=== PATIENT | male | born 1960 | race African-American/Black ===

== ENCOUNTER 2021-03-18 09:20 | Emergency (ER) | payer OTHER ==
[~2021-03-18] VITALS: Ht 165.1 cm; Wt 70.3 kg
[2021-03-18 09:53] LABS: Urine Bacteria FEW /hpf (None Seen); Urine Blood 3+ /uL (Negative); Urine Specific Gravity 1.012 (1.001-1.035); Urine WBC 99 /hpf (0 - 3)
[2021-03-18 09:56] LABS: Basophils # (auto) 0.1 10 ^3/uL (0-0.2); Eosinophils # (auto) 0.3 10 ^3/uL (0-0.8); White Blood Cell 12.6 10^3/uL (4.4-10.8)
[2021-03-18 09:58] LABS: Basophils % (auto) 0.4 % (0.0-2.0); Eosinophils % (auto) 2.5 % (0.0-7.0); Hematocrit 30.7 % (41.0-53.0); Hemoglobin 10.2 g/dL (13.5-17.5); Lymphocytes # (auto) 2.7 10 ^3/uL (0.4-5.4); Lymphocytes % (auto) 21.1 % (10.0-50.0); Mean Corpuscular Hemoglobin 23.5 pg (28.0-32.0); Mean Corpuscular Hgb Conc. 33.2 g/dL (32.0-36.0); Mean Corpuscular Volume 70.9 fL (80.0-100.0); Monocytes # (auto) 0.8 10 ^3/uL (0-1.3); Monocytes % (auto) 6.4 % (0.0-12.0); Neutrophils # (auto) 8.8 10 ^3/uL (1.6-8.6); Neutrophils % (auto) 69.6 % (37.0-80.0); Nucleated Red Blood Cells % 0.2 %; Red Blood Cells 4.33 10^6/uL (4.5-5.90); Red Cell Distribution Width 18.3 % (11.8-14.3)
[2021-03-18 10:07] LABS: Albumin 3.7 g/dL (3.4-5.0); Calcium 8.4 mg/dL (8.5-10.1)
[2021-03-18 10:11] LABS: BUN/Creatinine Ratio 13.9; Bilirubin, Total 0.4 mg/dL (0.2-1.0); Total Protein 8.2 g/dL (6.4-8.2)
[2021-03-18 11:21] VITALS: BP 142/82
== END 2021-03-18 11:24 | disposition home or self-care (01) ==
LOC: ER 09:20
DX: N20.0 Calculus of kidney (principal); N39.0 Urinary tract infection, site not specified; I12.9 Hypertensive chronic kidney disease with stage 1 through stage 4 chronic kidney disease, or unspecified chronic kidney disease; N18.9 Chronic kidney disease, unspecified; Z88.8 Allergy status to other drugs, medicaments and biological substances
CPT/HCPCS: 36415; 71045; 74176; 80053; 81001; 85025

== ENCOUNTER 2021-04-20 18:48 | Inpatient (IN) | payer MEDICAID ==
[~2021-04-20] VITALS: Ht 165.1 cm; Wt 74.0 kg
[2021-04-20 21:20] LABS: Basophils # (auto) 0.1 10 ^3/uL (0-0.2); Basophils % (auto) 0.7 % (0.0-2.0); Eosinophils # (auto) 0.3 10 ^3/uL (0-0.8); Hemoglobin 10.5 g/dL (13.5-17.5); Neutrophils # (auto) 8.4 10 ^3/uL (1.6-8.6); Neutrophils % (auto) 64.9 % (37.0-80.0)
[2021-04-20 21:21] LABS: Eosinophils % (auto) 2.2 % (0.0-7.0); Hematocrit 31.2 % (41.0-53.0); Lymphocytes % (auto) 23.1 % (10.0-50.0); Mean Corpuscular Hemoglobin 23.8 pg (28.0-32.0); Mean Corpuscular Hgb Conc. 33.5 g/dL (32.0-36.0); Mean Corpuscular Volume 70.9 fL (80.0-100.0); Monocytes # (auto) 1.2 10 ^3/uL (0-1.3); Monocytes % (auto) 9.1 % (0.0-12.0); Nucleated Red Blood Cells % 0.2 %; Red Cell Distribution Width 18.8 % (11.8-14.3)
[2021-04-20 21:24] LABS: Urine Bacteria FEW /hpf (None Seen); Urine Blood 3+ /uL (Negative); Urine Mucus FEW (None Seen); Urine Specific Gravity 1.014 (1.001-1.035); Urine WBC 247 /hpf (0 - 3); Urine WBC Clumps PRESENT /hpf (None Seen)
[2021-04-20 21:32] LABS: INR 1.07 (0.9-1.15)
[2021-04-20 21:34] LABS: Albumin 3.7 g/dL (3.4-5.0); Calcium 8.6 mg/dL (8.5-10.1); Potassium 3.6 mmol/L (3.5-5.1)
[2021-04-20 21:37] LABS: BUN/Creatinine Ratio 19.2; Bilirubin, Total 0.3 mg/dL (0.2-1.0); Total Protein 8.7 g/dL (6.4-8.2)
[2021-04-20] MEDS ORDERED: cefTRIAXone 1GM/50ML D5W 50 ML IV ONE (22:45)
[2021-04-20] MEDS ORDERED: SODIUM CHLORIDE 0.9% 1,000 ML IV ONE (22:45)
[2021-04-21] MEDS ORDERED: MORPHINE SULFATE INJECTION 2 MG/ML SYRG IV PRN (00:30)
[2021-04-21] MEDS ORDERED: ACETAMINOPHEN 325 MG TAB PO PRN (00:30)
[2021-04-21] MEDS ORDERED: NITROGLYCERIN 0.4 MG SL TAB SL PRN (00:30)
[2021-04-21] MEDS ORDERED: ONDANSETRON HCL 4 MG/2 ML VIAL IV PRN (00:30)
[2021-04-21] MEDS ORDERED: DOCUSATE SOD 100 MG CAP PO PRN (00:30)
[2021-04-21 05:06] LABS: Basophils # (auto) 0.1 10 ^3/uL (0-0.2); Eosinophils # (auto) 0.3 10 ^3/uL (0-0.8); Lymphocytes # (auto) 2.3 10 ^3/uL (0.4-5.4); Mean Corpuscular Hemoglobin 24.2 pg (28.0-32.0); Nucleated Red Blood Cells % 0.1 %; Red Cell Distribution Width 18.6 % (11.8-14.3); White Blood Cell 10.8 10^3/uL (4.4-10.8)
[2021-04-21 05:08] LABS: Basophils % (auto) 0.5 % (0.0-2.0); Eosinophils % (auto) 2.5 % (0.0-7.0); Hematocrit 30.9 % (41.0-53.0); Hemoglobin 10.5 g/dL (13.5-17.5); Lymphocytes % (auto) 21.4 % (10.0-50.0); Mean Corpuscular Volume 71.1 fL (80.0-100.0); Monocytes # (auto) 0.9 10 ^3/uL (0-1.3); Monocytes % (auto) 8.2 % (0.0-12.0); Neutrophils # (auto) 7.3 10 ^3/uL (1.6-8.6); Neutrophils % (auto) 67.4 % (37.0-80.0); Red Blood Cells 4.34 10^6/uL (4.5-5.90)
[2021-04-21 05:23] LABS: Calcium 8.6 mg/dL (8.5-10.1); Potassium 3.7 mmol/L (3.5-5.1)
[2021-04-21 05:29] LABS: Albumin 3.4 g/dL (3.4-5.0); Bilirubin, Total 0.5 mg/dL (0.2-1.0)
[2021-04-21] MEDS: SODIUM CHLOR 0.9% PF (SALINE LOCK) 10ML VIAL/SYR IV SCH ×3 (06:07→21:58)
[2021-04-21] MEDS: cefTRIAXone 1GM/50ML D5W 50 ML IV SCH (09:41)
[2021-04-21] MEDS: HYDROcodone-ACET 5/325MG TAB PO PRN ×3 (09:42→17:45)
[2021-04-21] MEDS: ZINC SULFATE 220mg CAP or TAB PO SCH (10:20)
[2021-04-21] MEDS: FAMOTIDINE (10MG/ML) 2ML VL IV SCH ×2 (10:20→21:58)
[2021-04-21] MEDS: MULTIPLE VITAMIN TAB PO SCH (10:21)
[2021-04-21] MEDS: ASCORBIC ACID 500 MG TAB PO SCH ×2 (10:21→21:58)
[2021-04-21] MEDS ORDERED: SODIUM CHLORIDE 0.9% 1,000 ML IV ONE (14:00)
[2021-04-21 16:08] VITALS: BP 145/84
[2021-04-21] MEDS ORDERED: TAM04C PO (16:31)
[2021-04-21] MEDS ORDERED: AML5T PO (16:31)
[2021-04-21 17:00] VITALS: BP 154/80
[2021-04-21 22:02] VITALS: BP 140/78
[2021-04-22] MEDS: HYDROcodone-ACET 5/325MG TAB PO PRN ×3 (02:19→20:34)
[2021-04-22 05:00] VITALS: BP_SYST 136; BP_SYST 164; BP_DIAS 71; BP_DIAS 80
[2021-04-22] MEDS: SODIUM CHLOR 0.9% PF (SALINE LOCK) 10ML VIAL/SYR IV SCH ×3 (05:13→22:00)
[2021-04-22 06:21] LABS: Basophils # (auto) 0.1 10 ^3/uL (0-0.2); Basophils % (auto) 0.6 % (0.0-2.0); Eosinophils # (auto) 0.2 10 ^3/uL (0-0.8); Hemoglobin 10.8 g/dL (13.5-17.5); Nucleated Red Blood Cells % 0.1 %
[2021-04-22 06:23] LABS: Eosinophils % (auto) 1.9 % (0.0-7.0); Hematocrit 32.3 % (41.0-53.0); Lymphocytes # (auto) 2.1 10 ^3/uL (0.4-5.4); Lymphocytes % (auto) 19.6 % (10.0-50.0); Mean Corpuscular Hemoglobin 24.1 pg (28.0-32.0); Mean Corpuscular Hgb Conc. 33.6 g/dL (32.0-36.0); Mean Corpuscular Volume 71.7 fL (80.0-100.0); Monocytes # (auto) 0.9 10 ^3/uL (0-1.3); Monocytes % (auto) 8.5 % (0.0-12.0); Neutrophils # (auto) 7.6 10 ^3/uL (1.6-8.6); Neutrophils % (auto) 69.4 % (37.0-80.0); Red Cell Distribution Width 18.6 % (11.8-14.3); White Blood Cell 10.9 10^3/uL (4.4-10.8)
[2021-04-22 06:33] LABS: Albumin 3.6 g/dL (3.4-5.0); Calcium 8.8 mg/dL (8.5-10.1); Potassium 3.9 mmol/L (3.5-5.1)
[2021-04-22 06:38] LABS: BUN/Creatinine Ratio 14.7; Bilirubin, Total 0.5 mg/dL (0.2-1.0); Total Protein 8.4 g/dL (6.4-8.2)
[2021-04-22 09:00] VITALS: BP 165/93
[2021-04-22 12:42] VITALS: BP 162/95
[2021-04-22] MEDS ORDERED: OXYB10TA14 PO (12:47)
[2021-04-22] MEDS: MULTIPLE VITAMIN TAB PO SCH (12:49)
[2021-04-22] MEDS: FAMOTIDINE (10MG/ML) 2ML VL IV SCH ×2 (12:49→22:00)
[2021-04-22] MEDS: ASCORBIC ACID 500 MG TAB PO SCH ×2 (12:49→22:00)
[2021-04-22] MEDS: ZINC SULFATE 220mg CAP or TAB PO SCH (12:49)
[2021-04-22] MEDS: cefTRIAXone 1GM/50ML D5W 50 ML IV SCH (15:00)
[2021-04-22 17:00] VITALS: BP 172/111
[2021-04-22] MEDS ORDERED: hydrALAZINE HCL 20 MG/ML VL IV PRN (19:15)
[2021-04-22 22:00] VITALS: BP 160/104
[2021-04-23] MEDS: HYDROcodone-ACET 5/325MG TAB PO PRN ×2 (04:06→12:40)
[2021-04-23 05:00] VITALS: BP 129/79
[2021-04-23] MEDS: SODIUM CHLOR 0.9% PF (SALINE LOCK) 10ML VIAL/SYR IV SCH ×2 (06:00→14:00)
[2021-04-23] MEDS ORDERED: FUROSEMIDE 40 MG/4 ML VIAL IV ONE (08:15)
[2021-04-23 09:00] VITALS: BP 149/87
[2021-04-23] MEDS: FAMOTIDINE (10MG/ML) 2ML VL IV SCH (10:00)
[2021-04-23] MEDS: MULTIPLE VITAMIN TAB PO SCH (12:40)
[2021-04-23] MEDS: ASCORBIC ACID 500 MG TAB PO SCH (12:40)
[2021-04-23] MEDS: ZINC SULFATE 220mg CAP or TAB PO SCH (12:40)
[2021-04-23 13:00] VITALS: BP 142/84
[2021-04-23 17:00] VITALS: BP 155/96
[2021-04-23 20:00] VITALS: BP 149/87
[2021-04-23 22:00] VITALS: BP 126/83
[2021-04-24] VITALS (7 sets, daily range): BP systolic 126–148; BP diastolic 80–95
[2021-04-24] MEDS: ASCORBIC ACID 500 MG TAB PO SCH ×3 (01:10→22:05)
[2021-04-24] MEDS: FAMOTIDINE (10MG/ML) 2ML VL IV SCH ×3 (01:10→22:00)
[2021-04-24] MEDS: SODIUM CHLOR 0.9% PF (SALINE LOCK) 10ML VIAL/SYR IV SCH ×3 (07:18→22:05)
[2021-04-24] MEDS: cefTRIAXone 1GM/50ML D5W 50 ML IV SCH ×2 (09:30→09:49)
[2021-04-24] MEDS: ZINC SULFATE 220mg CAP or TAB PO SCH (09:49)
[2021-04-24] MEDS: MULTIPLE VITAMIN TAB PO SCH (09:49)
[2021-04-24] MEDS: amLODIPine BESYLATE 5 MG TAB PO SCH (10:30)
[2021-04-24] MEDS: OXYBUTYNIN CHL 5 MG TAB PO SCH (10:36)
[2021-04-24] MEDS: MORPHINE SULFATE INJECTION 2 MG/ML SYRG IV PRN ×3 (10:37→23:31)
[2021-04-24] MEDS: TAMSULOSIN HYDROCHLORIDE 0.4 MG CAP PO SCH (17:48)
[2021-04-25 05:00] VITALS: BP 113/67
[2021-04-25] MEDS: SODIUM CHLOR 0.9% PF (SALINE LOCK) 10ML VIAL/SYR IV SCH ×3 (05:21→21:37)
[2021-04-25] MEDS: MORPHINE SULFATE INJECTION 2 MG/ML SYRG IV PRN ×3 (05:35→19:49)
[2021-04-25 08:17] VITALS: BP 123/80
[2021-04-25 09:00] VITALS: BP 123/80
[2021-04-25] MEDS: cefTRIAXone 1GM/50ML D5W 50 ML IV SCH (09:46)
[2021-04-25] MEDS: ZINC SULFATE 220mg CAP or TAB PO SCH (09:48)
[2021-04-25] MEDS: OXYBUTYNIN CHL 5 MG TAB PO SCH (09:48)
[2021-04-25] MEDS: ASCORBIC ACID 500 MG TAB PO SCH ×2 (09:48→21:36)
[2021-04-25] MEDS: FAMOTIDINE (10MG/ML) 2ML VL IV SCH ×2 (09:55→21:37)
[2021-04-25] MEDS: amLODIPine BESYLATE 5 MG TAB PO SCH (09:56)
[2021-04-25] MEDS: MULTIPLE VITAMIN TAB PO SCH (11:40)
[2021-04-25 13:00] VITALS: BP 115/85
[2021-04-25 17:00] VITALS: BP 133/86
[2021-04-25] MEDS: TAMSULOSIN HYDROCHLORIDE 0.4 MG CAP PO SCH (17:32)
[2021-04-25 22:00] VITALS: BP 128/79
[2021-04-26] MEDS: MORPHINE SULFATE INJECTION 2 MG/ML SYRG IV PRN ×3 (01:45→18:13)
[2021-04-26 05:00] VITALS: BP 133/85
[2021-04-26] MEDS: SODIUM CHLOR 0.9% PF (SALINE LOCK) 10ML VIAL/SYR IV SCH ×3 (05:44→21:02)
[2021-04-26 09:00] VITALS: BP 121/92
[2021-04-26] MEDS: amLODIPine BESYLATE 5 MG TAB PO SCH (10:00)
[2021-04-26 10:07] LABS: BUN/Creatinine Ratio 18.1; Potassium 3.8 mmol/L (3.5-5.1)
[2021-04-26] MEDS: OXYBUTYNIN CHL 5 MG TAB PO SCH (10:16)
[2021-04-26] MEDS: FAMOTIDINE (10MG/ML) 2ML VL IV SCH ×2 (10:16→21:02)
[2021-04-26] MEDS: cefTRIAXone 1GM/50ML D5W 50 ML IV SCH (10:16)
[2021-04-26] MEDS: ASCORBIC ACID 500 MG TAB PO SCH ×2 (10:16→21:02)
[2021-04-26] MEDS: MULTIPLE VITAMIN TAB PO SCH (10:16)
[2021-04-26] MEDS: ZINC SULFATE 220mg CAP or TAB PO SCH (10:17)
[2021-04-26] MEDS ORDERED: FUROSEMIDE 40 MG/4 ML VIAL IV ONE (11:30)
[2021-04-26 17:00] VITALS: BP 135/91
[2021-04-26] MEDS: TAMSULOSIN HYDROCHLORIDE 0.4 MG CAP PO SCH (18:13)
[2021-04-26 22:00] VITALS: BP 131/98
[2021-04-27] MEDS: MORPHINE SULFATE INJECTION 2 MG/ML SYRG IV PRN (01:57)
[2021-04-27 05:00] VITALS: BP 128/79
[2021-04-27] MEDS: SODIUM CHLOR 0.9% PF (SALINE LOCK) 10ML VIAL/SYR IV SCH ×2 (05:46→14:00)
[2021-04-27 09:00] VITALS: BP 121/85
[2021-04-27] MEDS: MULTIPLE VITAMIN TAB PO SCH (09:27)
[2021-04-27] MEDS: cefTRIAXone 1GM/50ML D5W 50 ML IV SCH (09:27)
[2021-04-27] MEDS: FAMOTIDINE (10MG/ML) 2ML VL IV SCH (09:28)
[2021-04-27] MEDS: OXYBUTYNIN CHL 5 MG TAB PO SCH (09:28)
[2021-04-27] MEDS: ZINC SULFATE 220mg CAP or TAB PO SCH (09:28)
[2021-04-27] MEDS: HYDROcodone-ACET 5/325MG TAB PO PRN (09:28)
[2021-04-27] MEDS: ASCORBIC ACID 500 MG TAB PO SCH (09:28)
[2021-04-27] MEDS: amLODIPine BESYLATE 5 MG TAB PO SCH (09:32)
[2021-04-27 13:00] VITALS: BP 147/101
[2021-04-27] MEDS: PHENAZOPYRIDINE HCL 100 MG TAB PO SCH ×2 (16:13→18:56)
[2021-04-27 16:15] VITALS: BP 121/85
[2021-04-27 17:00] VITALS: BP 120/79
[2021-04-27] MEDS: TAMSULOSIN HYDROCHLORIDE 0.4 MG CAP PO SCH (18:56)
== END 2021-04-27 18:58 | disposition home or self-care (01) | DRG 466 ==
LOC: ER 18:48 → OVERFLOW 04-21 00:22 → WEST WING 04-21 16:13
PROVIDERS: ADMIT Nurse Practitioner Family; ATTEND Family Medicine
DX: T83.012A Breakdown (mechanical) of nephrostomy catheter, initial encounter (principal); A41.9 Sepsis, unspecified organism; N17.9 Acute kidney failure, unspecified; I12.0 Hypertensive chronic kidney disease with stage 5 chronic kidney disease or end stage renal disease; N18.6 End stage renal disease; N13.6 Pyonephrosis; R31.9 Hematuria, unspecified; Z20.822 Contact with and (suspected) exposure to COVID-19; Y73.2 Prosthetic and other implants, materials and accessory gastroenterology and urology devices associated with adverse incidents; Z85.51 Personal history of malignant neoplasm of bladder; Z87.442 Personal history of urinary calculi; Z87.891 Personal history of nicotine dependence; Z90.79 Acquired absence of other genital organ(s)
CPT/HCPCS: 36415; 74176; 78707; 80048; 80053; 81001; 83605; 85025; 85610; 87040; 87086; 87426; 96361; 96365; 96366; G0378; J0696; J3490

== ENCOUNTER 2021-06-15 07:42 | Emergency (ER) | payer MEDICAID ==
[~2021-06-15] VITALS: Ht 165.1 cm; Wt 70.3 kg
[~2021-06-15 07:42] MED LIST: AML5T PO; OXYB10TA14 PO; TAM04C PO
[2021-06-15 07:58] VITALS: BP 143/77
== END 2021-06-15 10:03 | disposition home or self-care (01) ==
LOC: ER 07:42
DX: T83.092A Other mechanical complication of nephrostomy catheter, initial encounter (principal); R10.9 Unspecified abdominal pain; I12.0 Hypertensive chronic kidney disease with stage 5 chronic kidney disease or end stage renal disease; N18.6 End stage renal disease; Z79.899 Other long term (current) drug therapy; Z88.8 Allergy status to other drugs, medicaments and biological substances

== ENCOUNTER 2021-06-19 05:59 | Emergency (ER) | payer MEDICAID ==
[~2021-06-19] VITALS: Ht 165.1 cm; Wt 70.3 kg
[2021-06-19 08:02] LABS: Basophils # (auto) 0.1 10 ^3/uL (0-0.2); Eosinophils # (auto) 0.1 10 ^3/uL (0-0.8); Hemoglobin 9.6 g/dL (13.5-17.5)
[2021-06-19 08:04] LABS: Basophils % (auto) 0.8 % (0.0-2.0); Eosinophils % (auto) 0.9 % (0.0-7.0); Hematocrit 29.3 % (41.0-53.0); Lymphocytes # (auto) 2.4 10 ^3/uL (0.4-5.4); Lymphocytes % (auto) 16.2 % (10.0-50.0); Mean Corpuscular Hemoglobin 23.9 pg (28.0-32.0); Mean Corpuscular Hgb Conc. 32.8 g/dL (32.0-36.0); Monocytes # (auto) 1.7 10 ^3/uL (0-1.3); Monocytes % (auto) 11.5 % (0.0-12.0); Neutrophils # (auto) 10.6 10 ^3/uL (1.6-8.6); Neutrophils % (auto) 70.6 % (37.0-80.0); Nucleated Red Blood Cells % 0.1 %; Red Blood Cells 4.01 10^6/uL (4.5-5.90); Red Cell Distribution Width 17.5 % (11.8-14.3)
[2021-06-19 08:17] LABS: INR 1.1 (0.9-1.15); Partial Thromboplastin Time 30.3 sec (23.6-33.0)
[2021-06-19 08:20] LABS: Albumin 3.3 g/dL (3.4-5.0); Anion Gap 5 (5-15); Blood Urea Nitrogen 26 mg/dL (7-18); Carbon Dioxide 24 mmol/L (21-32); Chloride 108 mmol/L (98-107); Glucose 94 mg/dL (74-106); Potassium 4.3 mmol/L (3.5-5.1); Sodium 137 mmol/L (136-145)
[2021-06-19 08:25] LABS: Alanine Aminotransferase 35 U/L (16-61); Alkaline Phosphatase 110 U/L (45-117); Aspartate Aminotransferase 21 U/L (15-37); BUN/Creatinine Ratio 13.8; Bilirubin, Total 0.3 mg/dL (0.2-1.0); GFR African American 47 mL/min; GFR Non-African American 39 mL/min; Total Protein 8.4 g/dL (6.4-8.2)
[2021-06-19] MEDS ORDERED: cefTRIAXone W LIDOCAINE 1 GM IM IM ONE (08:30)
[2021-06-19 08:55] LABS: Urine Bacteria MOD /hpf (None Seen); Urine Blood 3+ /uL (Negative); Urine Hyaline Cast MOD /lpf (0 - 2); Urine Specific Gravity 1.016 (1.001-1.035); Urine WBC 607 /hpf (0 - 3)
[2021-06-19] MEDS ORDERED: cefTRIAXone SOD 1,000 MG VL ONE (09:00)
[2021-06-19 09:18] VITALS: BP 155/80
== END 2021-06-19 10:05 | disposition home or self-care (01) ==
LOC: ER 05:59
DX: N39.0 Urinary tract infection, site not specified (principal); I12.0 Hypertensive chronic kidney disease with stage 5 chronic kidney disease or end stage renal disease; E11.22 Type 2 diabetes mellitus with diabetic chronic kidney disease; N18.6 End stage renal disease; R31.9 Hematuria, unspecified; Z93.6 Other artificial openings of urinary tract status; Z88.6 Allergy status to analgesic agent; Z79.899 Other long term (current) drug therapy; Z87.442 Personal history of urinary calculi
CPT/HCPCS: 36415; 71045; 80053; 81001; 84484; 85025; 85610; 85730; 96372; 99284; J0696

== ENCOUNTER 2021-08-06 16:29 | Inpatient (IN) | payer MEDICAID ==
[~2021-08-06] VITALS: Ht 167.6 cm; Wt 62.4 kg
[2021-08-06 19:00] LABS: Hematocrit 25.1 % (41.0-53.0); Hemoglobin 7.5 g/dL (13.5-17.5); Mean Corpuscular Hemoglobin 21.2 pg (28.0-32.0); Mean Corpuscular Volume 70.7 fL (80.0-100.0); Red Blood Cells 3.55 10^6/uL (4.5-5.90); Red Cell Distribution Width 19.9 % (11.8-14.3)
[2021-08-06 19:08] LABS: Basophils % (manual) 0 (0.0-2.0); Blast Cells 0; Eosinophils % (manual) 0 (0-7); Metamyelocytes % 0; Myelocytes % 0; Promyelocytes % 0; Reactive Lymphocytes 0
[2021-08-06 19:17] LABS: Albumin 2.3 g/dL (3.4-5.0); BUN/Creatinine Ratio 22.2; Calcium 8.1 mg/dL (8.5-10.1); Potassium 5.3 mmol/L (3.5-5.1)
[2021-08-06 19:26] LABS: Bilirubin, Total 2.7 mg/dL (0.2-1.0); Total Protein 7.6 g/dL (6.4-8.2)
[2021-08-06 20:54] LABS: Urine Bacteria FEW /hpf (None Seen); Urine Blood 2+ /uL (Negative); Urine Specific Gravity 1.012 (1.001-1.035); Urine WBC 341 /hpf (0 - 3)
[2021-08-06 21:06] LABS: Band Neutrophils % (manual) 2; Lymphocytes % (manual) 20 (10.0-50.0); Monocytes % (manual) 7 (0-12)
[2021-08-06] MEDS ORDERED: MORPHINE SULFATE 4 MG/ML SYR/VIAL IV ONE (22:15)
[2021-08-06] MEDS ORDERED: ONDANSETRON HCL 4 MG/2 ML VIAL IV ONE (22:15)
[2021-08-06 23:04] LABS: INR 1.49 (0.9-1.15); Partial Thromboplastin Time 34.2 sec (23.6-33.0)
[2021-08-06 23:32] LABS: Lactic Acid w/Reflex 3.7 mmol/L (0.4-2.0)
[2021-08-06 23:55] VITALS: BP 117/72
[2021-08-07] MEDS ORDERED: HYDROCORTISONE SOD SUCC 100 MG/2ML INJ VIAL IV ONE
[2021-08-07] MEDS ORDERED: SODIUM CHLORIDE 0.9% 500 ML IV ONE
[2021-08-07] MEDS ORDERED: CEFTRIAXONE SODIUM 2 GM in D5W 5% 50 ML IV ONE ×2
[2021-08-07] MEDS ORDERED: cefTRIAXone 1GM/50ML D5W 100 ML IV ONE (00:06)
[2021-08-07 00:21] VITALS: BP 120/76
[2021-08-07 01:52] VITALS: BP 130/81
[2021-08-07] MEDS ORDERED: HYDROmorphone HCL 2 MG/ML VL IV ONE (02:15)
[2021-08-07 07:21] LABS: Mean Corpuscular Hemoglobin 22.3 pg (28.0-32.0); Mean Corpuscular Hgb Conc. 30.5 g/dL (32.0-36.0); Mean Corpuscular Volume 72.9 fL (80.0-100.0); Red Blood Cells 3.57 10^6/uL (4.5-5.90); White Blood Cell 24.5 10^3/uL (4.4-10.8)
[2021-08-07 07:27] LABS: Red Cell Distribution Width 21.7 % (11.8-14.3)
[2021-08-07 07:28] LABS: Basophils % (manual) 0 (0.0-2.0); Blast Cells 0; Eosinophils % (manual) 0 (0-7); Metamyelocytes % 0; Myelocytes % 0; Promyelocytes % 0; Reactive Lymphocytes 0
[2021-08-07 08:17] LABS: Band Neutrophils % (manual) 2; Lymphocytes % (manual) 1 (10.0-50.0); Monocytes % (manual) 4 (0-12)
[2021-08-07] MEDS: cefTRIAXone 1GM/50ML D5W 50 ML IV SCH (10:15)
[2021-08-07] MEDS ORDERED: MORPHINE SULFATE INJECTION 2 MG/ML SYRG IV PRN ×2 (10:15→12:30)
[2021-08-07] MEDS ORDERED: NITROGLYCERIN 0.4 MG SL TAB SL PRN (10:15)
[2021-08-07] MEDS ORDERED: MORPHINE SULF 15mg ER tab PO SCH (12:30)
[2021-08-07] MEDS ORDERED: OXYCODONE W/ ACETAMINOPHEN 5/325MG TABLET PO PRN (12:30)
[2021-08-07 13:00] VITALS: BP 139/78
[2021-08-07] MEDS: PROMETHAZINE HCL 25 MG/ML 1ML IV PRN (13:01)
[2021-08-07] MEDS ORDERED: HYDROcodone-ACET 10/325MG TAB PO PRN (16:45)
[2021-08-07 17:00] VITALS: BP 138/90
[2021-08-07] MEDS: HYDROmorphone HCL 2 MG/ML VL IV PRN ×2 (17:37→21:31)
[2021-08-07] MEDS: MORPHINE SULF 30 mg ER tab PO SCH (21:31)
[2021-08-07 22:00] VITALS: BP 121/77
[2021-08-07] MEDS ORDERED: SENNA 8.6 MG TAB PO SCH (22:00)
[2021-08-08] VITALS (37 sets, daily range): BP systolic 58–168; BP diastolic 23–107
[2021-08-08] MEDS: PROMETHAZINE HCL 25 MG/ML 1ML IV PRN (04:44)
[2021-08-08 05:55] LABS: BUN/Creatinine Ratio 19.3; Calcium 8.7 mg/dL (8.5-10.1)
[2021-08-08] MEDS ORDERED: DEXTROSE 50% SYRINGE 50 ML IV ONE ×2 (06:12→13:04)
[2021-08-08] MEDS ORDERED: DEXTROSE 10% 1,000 ML IV ONE ×2 (06:23→06:30)
[2021-08-08] MEDS ORDERED: DEXTROSE (50%) 50ML SYRG IV PRN (06:30)
[2021-08-08 06:44] LABS: Potassium 7.4 mmol/L (3.5-5.1)
[2021-08-08] MEDS ORDERED: ALBUTEROL SULF 2.5 MG/0.5ML(0.5%) NEB SOLN NEB ONE (07:00)
[2021-08-08] MEDS ORDERED: DEXTROSE (50%) 50ML SYRG IV ONE ×2 (07:00→18:14)
[2021-08-08] MEDS ORDERED: InsuLIN REG 1unit/0.01ml Soln (100units/ml) IV ONE (07:00)
[2021-08-08] MEDS ORDERED: CALCIUM GLUC 1,000mg/50ml-NS 50 ML IV ONE (07:00)
[2021-08-08 07:22] LABS: Lactic Acid w/Reflex 20.5 mmol/L (0.4-2.0)
[2021-08-08] MEDS ORDERED: ACCU-CHEK COMFORT CURVE STRIP VI SCH ×2 (08:00→10:00)
[2021-08-08] MEDS ORDERED: NOREPINEPHRINE 8 MG/250ML KIT 250 ML IV ONE (08:47)
[2021-08-08] MEDS ORDERED: SUCCINYLCHOLINE CHLORIDE 20 MG/ML 10ML VIAL IV ONE (08:59)
[2021-08-08] MEDS ORDERED: MIDAZOLAM DRIP 50 mg/50mL 50 ML IV ONE (09:00)
[2021-08-08] MEDS ORDERED: ETOMIDATE (2MG/ML) 20ML VIAL IV ONE (09:04)
[2021-08-08] MEDS ORDERED: ROCURONIUM 10MG/ML 10ML VIAL IV ONE (09:04)
[2021-08-08] MEDS ORDERED: MIDAZOLAM HCL 2MG/2ML 2ml VIAL (1mg/ml) ONE (09:08)
[2021-08-08] MEDS ORDERED: PROPOFOL 100 ML IV SCH (09:30)
[2021-08-08] MEDS ORDERED: fentaNYL Drip 2500mCg/250mlNS 250 ML IV ONE (09:30)
[2021-08-08] MEDS ORDERED: SODIUM BICARBONATE 50ML VIAL 150 ML in SOD CHL 0.45% 1,000 ML IV SCH (09:45)
[2021-08-08] MEDS ORDERED: SODIUM BICARBONATE 8.4 % INJ 50ML VIAL IV ONE (09:45)
[2021-08-08] MEDS: MORPHINE SULF 30 mg ER tab PO SCH (10:00)
[2021-08-08] MEDS: cefTRIAXone 1GM/50ML D5W 50 ML IV SCH (10:00)
[2021-08-08] MEDS: NOREPINEPHRINE 8 MG/250ML KIT 250 ML IV SCH ×2 (10:14→15:00)
[2021-08-08] MEDS: MIDAZOLAM DRIP 50 mg/50mL 50 ML IV SCH ×2 (10:14→11:00)
[2021-08-08 10:51] LABS: Mean Corpuscular Hemoglobin 22.5 pg (28.0-32.0); Mean Corpuscular Hgb Conc. 28.2 g/dL (32.0-36.0)
[2021-08-08 10:53] LABS: Calcium 7.6 mg/dL (8.5-10.1)
[2021-08-08 10:55] LABS: BUN/Creatinine Ratio 17.7
[2021-08-08 10:57] LABS: Potassium 8.4 mmol/L (3.5-5.1); Red Cell Distribution Width 22.3 % (11.8-14.3)
[2021-08-08 11:04] LABS: Basophils % (manual) 0 (0.0-2.0); Blast Cells 0; Eosinophils % (manual) 0 (0-7); Hemoglobin 6.8 g/dL (13.5-17.5); Reactive Lymphocytes 0; White Blood Cell 38.4 10^3/uL (4.4-10.8)
[2021-08-08] MEDS ORDERED: SODIUM CHLORIDE 0.9% 1,850 ML IV ONE (11:15)
[2021-08-08] MEDS ORDERED: VASOPRESSIN 50 UNITS in D5W 5% 247.5 ML IV SCH (11:15)
[2021-08-08] MEDS ORDERED: PANTOPRAZOLE 40mg/50ML NS AE 50 ML IV SCH (12:15)
[2021-08-08] MEDS ORDERED: DOPamine 1600MCG/ML D5W 250 ML IV ONE (12:22)
[2021-08-08] MEDS ORDERED: SODIUM BICARBONATE 8.4% INJ 50ML SYRINGE ONE ×2 (12:29→12:30)
[2021-08-08 12:43] LABS: Band Neutrophils % (manual) 11; Lymphocytes % (manual) 7 (10.0-50.0); Metamyelocytes % 3; Monocytes % (manual) 4 (0-12); Myelocytes % 3; Promyelocytes % 1
[2021-08-08] MEDS ORDERED: SODIUM BICARBONATE 50ML VIAL 150 ML in D5W 5% 1,000 ML IV SCH (13:00)
[2021-08-08] MEDS ORDERED: PHENYLEPHRINE IV 250 ML IV ONE (13:14)
[2021-08-08] MEDS ORDERED: SODIUM CHL 0.9% 1000 ML BAG XX ONE (13:15)
[2021-08-08] MEDS ORDERED: EPINEPHrine HCL 250 ML IV SCH (15:15)
[2021-08-08] MEDS ORDERED: fentaNYL Drip 2500mCg/250mlNS 250 ML IV SCH (15:15)
[2021-08-08] MEDS ORDERED: SODIUM BICARBONATE 8.4% INJ 50ML SYRINGE IV ONE (18:14)
[2021-08-08] MEDS ORDERED: DOPamine 1600mCg/ml 400MG/250ml NSorD5 KIT/BAG IV ONE (18:14)
[2021-08-08] MEDS ORDERED: EPINEPHrine HCL 1 MG/10 ML SYRG IV ONE (18:14)
[2021-08-08] MEDS ORDERED: CALCIUM CHLOR(10%) 100MG/ML 10ML SYRINGE IV ONE (18:14)
[2021-08-08] MEDS ORDERED: LIDOCAINE HCL 100 MG/5ML (2%) SYRG INJ IV ONE (18:14)
[2021-08-09 13:06] LABS: Hepatitis A Ab IgM Negative; Hepatitis B Core IgM Negative; Hepatitis C Antibody Negative (Negative)
== END 2021-08-08 20:25 | DRG 720 ==
LOC: ER 16:29 → TELE 08-07 10:14 → TELE-CENTR 08-07 11:42 → DOU IN ICU 08-08 12:04
PROVIDERS: ADMIT Hospitalist; ATTEND Hospitalist
PROC: 30233N1 Transfusion of Nonautologous Red Blood Cells into Peripheral Vein, Percutaneous Approach (ICD-10-PCS; principal; 2021-08-07)
PROC: 5A12012 Performance of Cardiac Output, Single, Manual (ICD-10-PCS; 2021-08-08)
PROC: 5A1935Z Respiratory Ventilation, Less than 24 Consecutive Hours (ICD-10-PCS; 2021-08-08)
PROC: 0BH17EZ Insertion of Endotracheal Airway into Trachea, Via Natural or Artificial Opening (ICD-10-PCS; 2021-08-08)
PROC: 02HV33Z Insertion of Infusion Device into Superior Vena Cava, Percutaneous Approach (ICD-10-PCS; 2021-08-08)
PROC: 06HY33Z Insertion of Infusion Device into Lower Vein, Percutaneous Approach (ICD-10-PCS; 2021-08-08)
DX: A41.9 Sepsis, unspecified organism (principal); J96.00 Acute respiratory failure, unspecified whether with hypoxia or hypercapnia; I46.9 Cardiac arrest, cause unspecified; R65.21 Severe sepsis with septic shock; I13.11 Hypertensive heart and chronic kidney disease without heart failure, with stage 5 chronic kidney disease, or end stage renal disease; N17.9 Acute kidney failure, unspecified; K72.90 Hepatic failure, unspecified without coma; K92.2 Gastrointestinal hemorrhage, unspecified; Z66 Do not resuscitate; N18.6 End stage renal disease; R18.8 Other ascites; D64.9 Anemia, unspecified; E86.0 Dehydration; E87.5 Hyperkalemia; F12.90 Cannabis use, unspecified, uncomplicated; N13.6 Pyonephrosis; T83.012A Breakdown (mechanical) of nephrostomy catheter, initial encounter; Y73.2 Prosthetic and other implants, materials and accessory gastroenterology and urology devices associated with adverse incidents; Z20.822 Contact with and (suspected) exposure to COVID-19; Z88.8 Allergy status to other drugs, medicaments and biological substances; Z79.899 Other long term (current) drug therapy; Z80.1 Family history of malignant neoplasm of trachea, bronchus and lung; I25.2 Old myocardial infarction; Z82.49 Family history of ischemic heart disease and other diseases of the circulatory system; Y92.89 Other specified places as the place of occurrence of the external cause; Z87.442 Personal history of urinary calculi; Z87.891 Personal history of nicotine dependence; Z90.79 Acquired absence of other genital organ(s); Z92.21 Personal history of antineoplastic chemotherapy; Z85.51 Personal history of malignant neoplasm of bladder; Z92.3 Personal history of irradiation
CPT/HCPCS: 31500; 36415; 36600; 71045; 74176; 76775; 80048; 80053; 80074; 81001; 82140; 82805; 82962; 83605; 84484; 85007; 85027; 85610; 85730; 86703; 86850; 86900; 86901; 86920; 87040; 87070; 87081; 87205; 87426; 92950; 93306; 94002; 96365; 96375; 96376; 99291; G0378; J0330; J0696; J1642; J1815; J2250; J2405; J2704; J7060